=== PATIENT | female | born 2000 | race Caucasian/White ===

== ENCOUNTER 2021-01-15 17:07 | Emergency (ER) | payer SELFPAY ==
[2021-01-15 17:23] VITALS: BMI 26.4
[2021-01-15] MEDS ORDERED: ACETAMINOPHEN 1000 MG/100 ML VIAL (NON FORMULARY) IVPB ONE (17:25)
[2021-01-15] MEDS ORDERED: LACTATED RINGERS SOLUTION 1,000 ML IV STA (17:26)
[2021-01-15] MEDS ORDERED: ACETAMINOPHEN INJECTION 100 ML IVPB ONE (17:47)
[2021-01-15 18:28] LABS: BASO % 0.3 % (0-2.0); EOS % 0.1 % (0-4.5); HEMATOCRIT 36.4 % (32.4-45.2); HEMOGLOBIN 12.1 GM/dL (10.7-15.3); LYMPH % 8.3 % (8-40); MCH 30.7 pg (25.7-33.7); MCHC 33.3 g/dl (32.0-36.0); MEAN CELL VOLUME 92.2 fl (80-96); MEAN PLT VOLUME 8.3 fl (7.5-11.1); MONO % 12.5 % (3.8-10.2); NEUT % 78.8 % (42.8-82.8); PLATELET COUNT 193 K/MM3 (134-434); RBC 3.94 M/mm3 (3.60-5.2); RDW 13.3 % (11.6-15.6); WHITE BLOOD COUNT 4.6 K/mm3 (4.0-10.0)
[2021-01-15 18:40] LABS: INR 1.1 (0.83-1.09); PROTHROMBIN TIME (PATIENT) 13.5 SEC (9.7-13.0)
[2021-01-15 18:42] LABS: ACTIVATED PTT 37.7 SECONDS (25.2-36.5)
[2021-01-15 18:45] VITALS: TEMP 99.2
[2021-01-15 19:24] LABS: CHLORIDE 103 mmol/L (98-107); SODIUM 138 mmol/L (136-145)
[2021-01-15 19:27] LABS: ALBUMIN 4.5 g/dl (3.4-5.0); ANION GAP 11 MMOL/L (8-16); CALCIUM 8.8 mg/dL (8.5-10.1); CO2 23 mmol/L (21-32); GLUCOSE,RANDOM 78 mg/dL (74-106)
[2021-01-15 19:31] LABS: CREATININE 0.6 mg/dL (0.55-1.3); SGOT/AST 22 U/L (15-37); SGPT/ALT 17 U/L (13-61)
[2021-01-15 19:32] LABS: BILIRUBIN,TOTAL 0.9 mg/dL (0.2-1); TOT PROT 8.5 g/dl (6.4-8.2)
[2021-01-15 19:33] LABS: ALK PHOS 84 U/L (45-117)
[2021-01-15 20:12] VITALS: BP 110/62; PULSE 99
== END 2021-01-15 20:12 | disposition home or self-care (01) ==
LOC: JER 17:07
PROC: 3E033NZ Introduction of Analgesics, Hypnotics, Sedatives into Peripheral Vein, Percutaneous Approach (ICD-10-PCS; principal; 2021-01-15)
PROC: 3E0337Z Introduction of Electrolytic and Water Balance Substance into Peripheral Vein, Percutaneous Approach (ICD-10-PCS; 2021-01-15)
DX: U07.1 COVID-19 (principal)
CPT/HCPCS: 36415; 71045-TC-FY; 80053; 82550; 83605; 84484; 84703; 85025; 85610; 85730; 93005; 93010; 99285-25; J0131